=== PATIENT | female | born 1955 | race American Indian/Alaskan Native ===

== ENCOUNTER 2016-10-24 06:31 | Inpatient (IN) | payer MEDICARE ==
[2016-10-24 07:11] LABS: Basophils % (Auto) 0.4 % (0.0-1.8); Eosinophils % (Auto) 0.6 % (0.0-4.3); Hematocrit 37.8 % (30.3-42.9); Mean Corpuscular HGB Conc 32 % (30-34); Mean Corpuscular Hemoglobin 30 pg (28-32); Mean Corpuscular Volume 94 fl (79-97); Platelet Count 247 K/mm3 (140-440); Red Blood Count 4.02 M/mm3 (3.65-5.03); Red Cell Distribution Width 16.5 % (13.2-15.2); White Blood Count 13.8 K/mm3 (4.5-11.0)
[2016-10-24] MEDS ORDERED: ROCEPHIN/NS 1 GM/50 ML 50 ML IV ONE (07:13)
--- NOTE | 2016-10-24 07:22 | Emergency Department Report ---
HPI - General Chief Complaint: Dyspnea/Respdistress Time Seen by Provider: 10/24/16 06:42 - HPI HPI: Chief complaint: Shortness of breath and productive cough HPI: Patient is 60-year-old female with a history of hypertension, CVA with left hemiparesis, lupus, PEG tube, COPD who is still smoking presents today with a one-week history of shortness of breath and productive cough with green sputum. Patient also is noted to have a fever this morning. No nausea vomiting or diarrhea. Patient was brought by EMS who noted that her pulse ox was 77% on room air. Patient placed on 100% nonrebreather and her pulse ox went up to 98%. On arrival to the emergency Department patient was placed on BiPAP with significant improvement. Patient states she is unable to sleep last night. Patient has home O2 that she uses as needed. Patient has a PEG tube since her stroke. Mode of arrival: [EMS] Source: [Patient] and nursing notes Began: One week ago Duration: One week Context: See above Quality: Pleuritic chest pain on coughing Severity: 8 out of 10 Improved with: Nothing Worsened with: Nothing Associated signs and symptoms: See above ED Past Medical Hx - Past Medical History Hx Hypertension: Yes Hx CVA: Yes (Left sided weakness) Hx Seizures: Yes Additional medical history: lupus, MS, Pneumonia x17 - Surgical History Additional Surgical History: Peg tube - Social History Smoking Status: Current Every Day Smoker Substance Use Type: None - Medications Home Medications: Home Medications Medication Instructions Recorded Confirmed Last Taken Type HYDROcodone/APAP 7.5-325 [[place]] 15 ml PO Q4HR PRN #300 ml 06/01/16 Unknown Rx ED Review of Systems ROS: Stated complaint: LYNSEY Other details as noted in HPI ROS Constitutional: fever ENT: No uri symptoms Cardiovascular: No chest pain Respiratory: See HPI GI: No nausea vomiting or diarrhea : No dysuria frequency or urgency, Skin: No rash Neuro: Left hemiparesis, patient uses a walker to get around Psych: No depression Robson/lymph: No edema Physical Exam - Physical Exam Vital Signs: Vital Signs 10/24/16 10/24/16 06:33 06:47 Temperature 100.9 F H Pulse Rate 130 H 129 H Respiratory 24 22 Rate Blood Pressure 120/86 120/86 Blood Pressure 120/86 [Right] O2 Sat by Pulse 100 97 Oximetry Physical Exam: GENERAL: The patient is well-developed well-nourished . HEENT: Normocephalic. Atraumatic. Extraocular motions are intact. Patient has moist mucous membranes. NECK: Supple. No meningitic signs are noted. There is no adenopathy noted. CHEST/LUNGS: Wheezing throughout. There is mild respiratory distress noted. HEART/CARDIOVASCULAR: Regular. There is no tachycardia. There is no gallop rub or murmur. ABDOMEN: Abdomen is soft, nontender. Patient has normal bowel sounds. There is no abdominal distention. SKIN: There is no rash. There is no edema. There is no diaphoresis. NEURO: The patient is awake, alert, and oriented. The patient is cooperative. Left hemiparesis The patient has normal speech. MUSCULOSKELETAL: There is no tenderness or deformity. There is no limitation range of motion. There is no evidence of acute injury. ED Course Vital Signs 10/24/16 10/24/16 06:33 06:47 Temperature 100.9 F H Pulse Rate 130 H 129 H Respiratory 24 22 Rate Blood Pressure 120/86 120/86 Blood Pressure 120/86 [Right] O2 Sat by Pulse 100 97 Oximetry - Reevaluation(s) Reevaluation #1: 10/24/16 07:22 Patient placed on BiPAP and given a nebulizer treatment. Patient has a left pneumonia and was given 1 g of IV Rocephin. Patient will be admitted to the hospitalist. ED Medical Decision Making - Lab Data Result diagrams: 10/24/16 Unknown 10/24/16 06:40 Laboratory Tests 10/24/16 10/24/16 06:40 07:46 POC ABG pH 7.221 L POC ABG pCO2 37.4 POC ABG pO2 64 L POC ABG HCO3 15.4 POC ABG Total CO2 16 POC ABG O2 Sat 87 POC ABG Base Excess -12 FiO2 30 Troponin T < 0.010 - EKG Data -: EKG Interpreted by Me EKG shows normal: sinus rhythm Rate: tachycardia (129) - EKG Data When compared to previous EKG there are: no significant change Interpretation: LVH, other (significant artifact) - Radiology Data interpreted by me: Chest x-ray shows a left hilar infiltrate Critical care attestation.: If time is entered above; I have spent that time in minutes in the direct care of this critically ill patient, excluding procedure time. ED Disposition Clinical Impression: COPD exacerbation, Hypoxia Pneumonia involving left lung Qualifiers: Pneumonia type: due to unspecified organism Lung location: unspecified part of lung Qualified Code(s): J18.9 - Pneumonia, unspecified organism Respiratory failure Qualifiers: Chronicity: acute Respiratory failure complication: hypoxia Qualified Code(s): J96.01 - Acute respiratory failure with hypoxia Disposition: OP ADMITTED IP TO THIS HOSP Is pt being admited?: Yes Does the pt Need Aspirin: Yes Condition: Fair Instructions: Bacterial Pneumonia (ED), Chronic Obstructive Pulmonary Disease ( ED) Referrals: PRIMARY CARE, [Primary Care Provider] - 3-5 Days Time of Disposition: 07:24 (admit to the hospitalist)
[2016-10-24 07:31] LABS: BUN/Creatinine Ratio 31.66; Blood Urea Nitrogen 38 mg/dL (7-17); Calcium 8.9 mg/dL (8.4-10.2); Carbon Dioxide 15 mmol/L (22-30); Chloride 109.4 mmol/L (98-107); Glucose 96 mg/dL (65-100); Potassium 4.6 mmol/L (3.6-5.0); Sodium 142 mmol/L (137-145)
[2016-10-24] MEDS: ASPIRIN PO ONE ×2 (07:50→11:14)
[2016-10-24 07:52] LABS: Anion Gap 22 mmol/L
[2016-10-24 07:56] LABS: ISTAT Base Excess -12; ISTAT HCO3 15.4; ISTAT PCO2 37.4 (35-45); ISTAT PH 7.221 (7.35-7.45); ISTAT PO2 64 (80-105); ISTAT SO2 87; ISTAT TCO2 16
--- NOTE | 2016-10-24 09:23 | XRay Report ---
Single view chest: Compared to 12/18/10. History: Shortness of breath. Findings: Normal cardiomediastinal silhouette. Trachea is midline. Airspace opacities left hilum and left lower lobe. Normal CP angles. Scarring right upper lobe. Impression: Airspace opacities left hilum probably suggestive of pneumonitis.
[2016-10-24] MEDS ORDERED: NON-FORMULARY (Quetiapine Fumarate [Seroquel] 50 MG) FEEDTUBE SCH (10:00)
[2016-10-24] MEDS ORDERED: FIBER FEEDTUBE SCH (10:00)
[2016-10-24] MEDS ORDERED: LACTOSE REDUCED FOOD FEEDTUBE SCH (10:00)
[2016-10-24] MEDS ORDERED: PREDNISONE 10 MG FEEDTUBE SCH (10:00)
--- NOTE | 2016-10-24 10:03 | History and Physical Report ---
History of Present Illness Date of examination: 10/24/16 Date of admission: 10/24/16 Chief complaint: Cough with shortness of breath - 1 week History of present illness: Patient is 60-year-old lady who has a history or COPD, lupus, multiple sclerosis , stroke started having the cough and shortness of breath for the past 1 week. Progressively got worse for which she came into the emergency department last night. Has no subjective fever. At emergency department patient was found to be hypoxic with a PO2 in the 60s. Had leukocytosis. Chest x-ray shows evidence of left lower lobe infiltrate. Was placed on oxygen by nasal cannula. She was still hypoxic. Was therefore commenced on BiPAP. ABG and blood chemistry showed evidence of metabolic acidosis. Admission was therefore requested. Past History Past Medical History: COPD, stroke, other (multiple sclerosis, bipolar disorder , dysphagia status post PEG tube placement, systemic lupus erythematosus) Past Surgical History: Other (PEG tube placement for dysphagia) Social history: smoking (half pack of cigarette a day for the past 15 years), alcohol abuse Family history: other (lives alone however family members and her Daughter regularly check on her) Medications and Allergies Allergies Allergy/AdvReac Type Severity Reaction Status Date / Time No Known Allergies Allergy Unverified 06/01/16 12:48 Home Medications Medication Instructions Recorded Confirmed Last Taken Type Aspirin 81 mg FEEDTUBE DAILY 10/24/16 10/24/16 Unknown History Lactose-Reduced Food/Fiber [Jevity 237 ml FEEDTUBE DAILY 10/24/16 10/24/16 Unknown History 1.2 [place] Liquid] Prednisone [predniSONE (Addie) ER 10 mg FEEDTUBE QDAY 10/24/16 10/24/16 Unknown History TAB] Quetiapine Fumarate [SEROquel] 50 mg FEEDTUBE QDAY 10/24/16 10/24/16 Unknown History Active Meds: Active Medications Aspirin (Baby Aspirin) 81 mg FEEDTUBE DAILY JOE Enoxaparin Sodium (Lovenox) 40 mg SUB-Q QDAY JOE Azithromycin 500 mg/ Sodium (Chloride) 250 mls @ 250 mls/hr IV Q24HR JOE Ceftriaxone Sodium (Rocephin/Ns 1 Gm/50 Ml) 50 mls @ 100 mls/hr IV Q24HR JOE PRN Reason: Protocol Miscellaneous Medication (Lactose-Reduced Food/Fiber [Jevity 1.2 [place] Liquid]) 237 ml FEEDTUBE DAILY JOE Miscellaneous Medication (Prednisone [Prednisone (Addie) Er Tab]) 10 mg FEEDTUBE QDAY JOE Miscellaneous Medication (Quetiapine Fumarate [Seroquel]) 50 mg FEEDTUBE QDAY JOE Review of system Constitutional: Well Nourished and Well developed with moderate respiratory distress On BiPAP Head: NC/ AT Eyes: Denies any visual impairments. No discharge from the eyes Nose: Denies any rhinorrhea or epistaxis Throats: Denies any post nasal drainage. Ears: Denies any hearing deficits Cardiovascular system: Denies any chest pain, shortness of breath, orthopnea, paroxysmal nocturnal dyspnea, or palpitation. Respiratory system: Denies any cough, difficulty breathing, wheezing, pleuritic chest pain, Gastrointestinal system: Has a PEG tube in place. Denies any abdominal pain, nausea vomiting, hematemesis or melena. Neurological system: Denies any headache, slurred speech, facial droop, lateralizing weakness Genitalia system: Denies any dysuria, urinary frequency or urgency, urethral discharge Skin: No rashes, hyperpigmented spots. Hematological: Denies any cervical tenderness hemorrhages or petechia. Immunological: Denies any multiple septic spots, Lymphatic: Denies any generalized lymphadenopathy. Endocrine: Denies any polyuria, polydipsia, polyphagia. No heat or cold intolerance. Exam - Constitutional Vitals: Temp Pulse Resp BP Pulse Ox 100.9 F H 99 H 19 96/64 95 10/24/16 06:33 10/24/16 09:00 10/24/16 09:00 10/24/16 09:00 10/24/16 09:00 General appearance: Present: no acute distress, well-nourished - EENT Eyes: Present: PERRL ENT: hearing intact, clear oral mucosa - Neck Neck: Present: supple, normal ROM - Respiratory Respiratory effort: normal Respiratory: bilateral: CTA - Cardiovascular Heart Sounds: Present: S1 & S2. Absent: rub, click - Extremities Extremities: pulses symmetrical, No edema Peripheral Pulses: within normal limits - Abdominal General gastrointestinal: Present: soft, non-tender, non-distended, normal bowel sounds, other (PEG tube in place) Female genitourinary: Present: normal - Integumentary Integumentary: Present: clear, warm, dry - Musculoskeletal Musculoskeletal: gait normal, strength equal bilaterally - Psychiatric Psychiatric: appropriate mood/affect, intact judgment & insight - Neurologic Neurologic: CNII-XII intact, moves all extremities Results - Labs CBC & Chem 7: 10/24/16 Unknown 10/24/16 06:40 Labs: Abnormal lab results 10/24/16 10/24/16 10/24/16 Range/Units 06:40 07:46 Unknown WBC 13.8 H (4.5-11.0) K/mm3 RDW 16.5 H (13.2-15.2) % Lymph % (Auto) 13.3 L (13.4-35.0) % Seg Neutrophils % 82.2 H (40.0-70.0) % Seg Neutrophils # 11.4 H (1.8-7.7) K/mm3 POC ABG pH 7.221 L (7.35-7.45) POC ABG pO2 64 L (80-105) Chloride 109.4 H (98-107) mmol/L Carbon Dioxide 15 L (22-30) mmol/L BUN 38 H (7-17) mg/dL Assessment and Plan - Patient Problems (1) COPD exacerbation Diagnosis Date: 10/24/16 Current Visit: Yes Status: Acute Plan to address problem: Commence patient on albuterol and Atrovent, Pulmicort, patient already on IV Rocephin. Obtain chest x-ray and ABG in the morning, pulse ox (2) Pneumonia involving left lung Diagnosis Date: 10/24/16 Current Visit: Yes Status: Acute Qualifiers: Pneumonia type: due to unspecified organism Lung location: unspecified part of lung Qualified Code(s): J18.9 - Pneumonia, unspecified organism Plan to address problem: Blood cultures and obtain. Lactic acid level ordered. IV Rocephin and azithromycin. Pulse ox on a daily basis. (3) Acute respiratory failure with hypoxia Diagnosis Date: 10/24/16 Current Visit: Yes Status: Acute Plan to address problem: On BiPAP, oxygen supplement via BiPAP, pulmonary consult, IV Rocephin, azithromycin, (4) Dysphagia as late effect of stroke Diagnosis Date: 10/24/16 Current Visit: Yes Status: Acute Plan to address problem: Patient had PEG tube. Commence feeding with Jevity 1.5 (5) Multiple sclerosis Diagnosis Date: 10/24/16 Current Visit: Yes Status: Acute Plan to address problem: Patient on prednisone 10 mg daily. We'll continue with the same. (6) Bipolar disorder Diagnosis Date: 10/24/16 Current Visit: Yes Status: Acute Plan to address problem: Stable on Seroquel. Continue with the same.
[2016-10-24] MEDS: ROCEPHIN/NS 1 GM/50 ML 50 ML IV SCH (10:37)
[2016-10-24] MEDS: BABY ASPIRIN FEEDTUBE SCH (10:39)
[2016-10-24] MEDS ORDERED: DELTASONE PO ONE (10:42)
[2016-10-24] MEDS: NORCO 5/325 PO PRN ×2 (11:00→16:36)
[2016-10-24] MEDS ORDERED: NACL 0.9% 1000 ML 1,000 ML ONE (11:06)
[2016-10-24] MEDS: ZITHROMAX 500 MG in NACL 0.9% 250ML 250 ML IV SCH (11:13)
[2016-10-24] MEDS: LOVENOX SUB-Q SCH (11:15)
[2016-10-24] MEDS ORDERED: NACL 0.9% 1000 ML 500 ML IV ONE (11:30)
[2016-10-24] MEDS ORDERED: LEVOPHED DRIP 4 MG/NS 250 ML 250 ML IV SCH (11:30)
--- NOTE | 2016-10-24 12:26 | Consultation ---
History of Present Illness Consult date: 10/24/16 Requesting physician: JATINDER FRANCOIS Reason for consult: other (Sepsis Syndrome; Acute Respiratory FAilure) History of present illness: PULMONARY/CCM CONSULT NOTE (Full dictation # [id number]) Please see dictated notes for full details Past History Past Medical History: COPD, stroke, other (multiple sclerosis, bipolar disorder , dysphagia status post PEG tube placement, systemic lupus erythematosus) Past Surgical History: Other (PEG tube placement for dysphagia) Social history: smoking (half pack of cigarette a day for the past 15 years), alcohol abuse Family history: other (lives alone however family members and her Daughter regularly check on her) Medications and Allergies Allergies Allergy/AdvReac Type Severity Reaction Status Date / Time piperacillin sodium Allergy Anaphylaxis Verified 10/24/16 12:44 [From Zosyn] tazobactam sodium Allergy Anaphylaxis Verified 10/24/16 12:44 [From Zosyn] Home Medications Medication Instructions Recorded Confirmed Last Taken Type Aspirin 81 mg FEEDTUBE DAILY 10/24/16 10/24/16 Unknown History Lactose-Reduced Food/Fiber [Jevity 237 ml FEEDTUBE DAILY 10/24/16 10/24/16 Unknown History 1.2 [place] Liquid] Quetiapine Fumarate [SEROquel] 50 mg FEEDTUBE BID 10/24/16 10/24/16 Unknown History predniSONE [Deltasone] 10 mg FEEDTUBE QDAY 10/24/16 10/24/16 Unknown History Active Meds: Active Medications Acetaminophen/Hydrocodone Bitart ([place] 5/325) 1 each PO Q6H PRN PRN Reason: Pain, Moderate (4-6) Last Admin: 10/24/16 11:00 Dose: 1 each Aspirin (Baby Aspirin) 81 mg FEEDTUBE DAILY [facility] Last Admin: 10/24/16 10:39 Dose: Not Given Enoxaparin Sodium (Lovenox) 40 mg SUB-Q QDAY JOE Last Admin: 10/24/16 11:15 Dose: 40 mg Azithromycin 500 mg/ Sodium (Chloride) 250 mls @ 250 mls/hr IV Q24HR JOE Last Admin: 10/24/16 11:13 Dose: 250 mls/hr Ceftriaxone Sodium (Rocephin/Ns 1 Gm/50 Ml) 50 mls @ 100 mls/hr IV Q24HR JOE PRN Reason: Protocol Last Admin: 10/24/16 10:37 Dose: Not Given Norepinephrine (Levophed Drip 4 Mg/Ns 250 Ml) 250 mls @ 7.5 mls/hr IV TITR JOE ; 2 MCG/MIN PRN Reason: Protocol Prednisone (Deltasone) 10 mg PO DAILY JOE Quetiapine Fumarate (Seroquel) 50 mg PO BID JOE Physical Examination Vital signs: Vital Signs Temp Pulse Resp BP Pulse Ox 100.9 F H 130 H 24 120/86 100 10/24/16 06:33 10/24/16 06:33 10/24/16 06:33 10/24/16 06:33 10/24/16 06:33 Results - Laboratory Findings CBC and BMP: 10/24/16 Unknown 10/24/16 06:40 ABG POC ABG pH 7.221 (7.35-7.45) L 10/24/16 07:46 POC ABG pCO2 37.4 (35-45) 10/24/16 07:46 POC ABG pO2 64 (80-105) L 10/24/16 07:46 POC ABG HCO3 15.4 10/24/16 07:46 POC ABG Total CO2 16 10/24/16 07:46 POC ABG O2 Sat 87 10/24/16 07:46 Abnormal lab findings: Abnormal Labs 10/24/16 Unknown WBC 13.8 H RDW 16.5 H Lymph % (Auto) 13.3 L Seg Neutrophils % 82.2 H Seg Neutrophils # 11.4 H
--- NOTE | 2016-10-24 13:06 | XRay Report ---
Single view chest: Compared to 10/24/16. History: Shortness of breath. Findings: Normal cardiomediastinal silhouette. Trachea is midline. Ill-defined infiltrates left lower lobe without interval change. Scarring right lung without interval change. Tip of right central line in mid superior vena cava. No pneumothorax. Impression: Tip of right central line in superior vena cava. No significant interval change in cardiopulmonary findings.
[2016-10-24 13:43] LABS: ISTAT Base Excess -12; ISTAT HCO3 15.6; ISTAT PCO2 39.4 (35-45); ISTAT PH 7.204 (7.35-7.45); ISTAT PO2 72 (80-105); ISTAT SO2 90; ISTAT TCO2 17
[2016-10-24] MEDS ORDERED: FLUARIX QUAD 2016-2017(36 MOS+) IM ONE (15:14)
[2016-10-24] MEDS ORDERED: SODIUM BICARBONATE 150 MEQ in D5W 1,000 ML IV SCH (16:00)
[2016-10-24] MEDS: HABITROL TD SCH (16:35)
[2016-10-24] MEDS ORDERED: HYDROMET PO PRN (16:52)
[2016-10-24 17:18] LABS: C-Reactive Protein 6.6 mg/dL (0.00-1.30); Magnesium 1.7 mg/dL (1.7-2.3); Phosphorous 2.8 mg/dL (2.5-4.5)
[2016-10-24] MEDS: DUONEB 0.5 MG-3 MG/3 ML SOLN IH SCH (20:34)
[2016-10-24] MEDS: PEPCID PO SCH (22:33)
--- NOTE | 2016-10-24 22:42 | Consultation ---
CONSULTING PHYSICIAN: Marlin Oneill MD REASON FOR CONSULTATION: Acute hypoxemic respiratory failure, sepsis syndrome. CHIEF COMPLAINT AND HISTORY OF PRESENT ILLNESS: The patient is a 60-year-old -[place] female with past medical history significant amongst other things for a diagnosis of chronic obstructive lung disease, but also systemic lupus erythematosus and multiple sclerosis who according to her daughter really has not been herself for the past 7-10 days. She has had increasing dyspnea on exertion. She had a cough, initially it was clear and then became yellowish in nature. She complained of some pleuritic chest pain. She denied nausea, vomiting, or overt aspiration. She did not want to come to the Emergency Room because she suspected she might be admitted. She has a 20+ pack year tobacco smoking history, continues to smoke. Yesterday, symptoms decompensated rapidly. She remained afebrile, but was significantly short of breath. She was brought into the ER. She was found to be hypoxemic, O2 sats in the 60s. She had leukocytosis. She was diagnosed with pneumonia and required bilevel positive air pressure ventilation therapy. She also developed hypotension, earlier a few hours back and is requiring vasopressor support. When I stopped by to see her, she actually said she perhaps is feeling a little bit better, but still feels very awful. She complained of generalized pain. Denied any trauma. Denied nausea, vomiting, or overt aspiration. That really is as much of the history of presentation as I have. PAST MEDICAL HISTORY: Chronic obstructive lung disease, cerebrovascular accident in the past, multiple sclerosis, bipolar disorder, dysphagia, systemic lupus erythematosus. PAST SURGICAL HISTORY: She has had a PEG tube placed for dysphagia. MEDICATIONS: She was on at the time I stopped by to see her, according to the medication administration record included the following: [place] 5/325 mg p.o. q.6h. p.r.n. moderate pain, baby aspirin once daily, azithromycin 500 mg IV daily, Rocephin 1 gram IV daily, Lovenox 40 mg subcutaneous daily, Levophed drip was going at 4 mcg per minute, prednisone 10 mg p.o. daily, and Seroquel 50 mg p.o. b.i.d. scheduled. ALLERGIES: Zosyn. Nature of this allergy is unknown. DIET: Well-built lady, denies acute weight loss or gain in the preceding few weeks to months. FAMILY AND SOCIAL HISTORY: Lives in the community, 20+ pack year tobacco smoking history. Denies alcohol or illicit drug use or abuse. REVIEW OF SYSTEMS: No loss of consciousness. No new onset seizures. No new onset focal weakness. No gross hematochezia or melena. No gross hematuria or dysuria. No hematemesis. No hemoptysis. No palpitations. She has had a generalized weakness. Complete review of systems obtained. Pertinent positives and/or negatives as in body of history above, otherwise noncontributory. PHYSICAL EXAMINATION: VITAL SIGNS: At presentation, she was febrile, temperature 100.9 with a pulse of 130, respiratory rate of 24, blood pressure 120/86, oxygen sats were 100%, inspired oxygen concentration at that was not recorded, but I believe that was on BiPAP. HEAD, EYES, EARS, NOSE, AND THROAT: Pupils are equal, round, about 3 mm, reactive to light. Extraocular muscle movements appeared intact. Grossly, there were no palpable lymph nodes in the supraclavicular or submandibular lymph node chains. LUNGS: Auscultation of both lung [place] reveal bibasilar rales, left greater than right. No wheezing. HEART: Heart sounds 1 and 2 are heard. There were regular rate and rhythm at the time of my evaluation. ABDOMEN: Soft, flat. Bowel sounds are positive. Nontender. EXTREMITIES: Without overt digital clubbing. She does have swelling to the digits of her upper extremities. No significant pedal edema, otherwise. NEUROLOGIC: The exam was grossly nonfocal. LABORATORY DATA: From my review are as follows: White cell count 13,800, hemoglobin 12.0, hematocrit 37.8, and platelets 247. Arterial blood gas showed a pH of 7.22, pCO2 of 37, pO2 of 64 on 30% at presentation. Repeat gases now shows a pH of 7.20, pCO2 of 39, pO2 of 72, same 30% that was done on BiPAP, I believe was 18/5. Backup rate unknown. Serum sodium 142, potassium 4.6, chloride 109, bicarbonate 15, BUN 38, creatinine 1.2, glucose 96. Lactic acid level 0.9. Blood cultures are pending. Radiographic studies have been reviewed. I have reviewed the radiologist's interpretation as well as the film. Chest x-ray at admission did show chronically increased interstitial markings, chronic looking but also the suggestion of a left lower lobe infiltrate and possible perihilar enlargement in that side or infiltrate. No gross pneumothorax. She now has a right IJ central line tip is in the distal IVC. ASSESSMENT AND PLAN: We have an elderly lady here in with sepsis, presumably secondary to pneumonia. From a respiratory standpoint, she is doing relatively decent job, however, not able to compensate for the metabolic acidosis well at this point. She will continue to benefit from bilevel positive airway pressure ventilation therapy, especially at night, I will schedule q. night/q. when she is asleep and use p.r.n. during the day. We will work on correcting the metabolic acidosis primarily. I will schedule some bronchodilators in the short time and then p.r.n. thereafter. Aspiration precautions will be maintained, and we will continue current anti-infective therapy as ordered. I should mention that I will also been increasing systemic steroids for a different reason, I do feel that there is an element of chronic lung disease in this lady and perhaps, a CT scan of the chest might be of benefit, especially if she does not show improvement down the road. From a cardiovascular standpoint, she remains on vasopressors. It is unclear how much volume she has received total, but she did receive IV resuscitation downstairs. The BUN of a creatinine ratio does suggest intravascular volume depletion. She will be rehydrated. Vasopressors will be weaned to keep mean arterial pressures greater than or equal to about 60-65 mmHg. From an infectious disease standpoint, we will continue community acquired pneumonia therapy; however, I will be adding stress dose steroids for this lady who was on chronic prednisone at home. I will order a CRP level and we will trend lactic acid and CRP levels as necessary. We will get a lactic acid level in the morning. Anti-infectives will ultimately be deescalated based on results of clinical and microbiologic data. From a [employer] standpoint, the exam is grossly nonfocal. We will follow her clinically. From an endocrine/autoimmune standpoint, I think the swelling of the digits, probably and, however, all constitutional symptoms may also denote a flare up of her autoimmune disorders and as mentioned, I will go ahead and put her on stress dosed steroids in the short term. From a general and hospital healthcare maintenance standpoint, she is on GI and DVT prophylaxis. Flu and pneumonia vaccination will be per protocol. I should mention from a [employer] standpoint, the exam is grossly nonfocal. No acute indication for neuro imaging. We will follow her clinically. Thank you very much for the consult Dr. Oneill. We will follow along and make further recommendations as picture progresses/becomes clearer. She is critically ill, requiring noninvasive ventilatory support, as well as vasopressors life sustaining therapies, at high risk for further deterioration including . I have spent at this time about 35-40 minutes of critical care time without overlap and excluding any procedural time that may be necessary. JOB# [id number] LUPE/ALESSANDRO
[2016-10-25 07:57] LABS: Alanine Aminotransferase 10 units/L (7-56); Albumin 3.1 g/dL (3.9-5); Albumin/Globulin Ratio 0.7 %; Alkaline Phosphatase 89 units/L (35-129); BUN/Creatinine Ratio 33.33; Bilirubin,Total 0.2 mg/dL (0.1-1.2); Blood Urea Nitrogen 30 mg/dL (7-17); Calcium 8.4 mg/dL (8.4-10.2); Carbon Dioxide 23 mmol/L (22-30); Chloride 105.8 mmol/L (98-107); Glucose 126 mg/dL (65-100); Sodium 141 mmol/L (137-145); Total Protein 7.8 g/dL (6.3-8.2)
[2016-10-25 07:58] LABS: Anion Gap 16 mmol/L
[2016-10-25 08:09] LABS: Hematocrit 32.7 % (30.3-42.9); Hemoglobin 10.5 gm/dl (10.1-14.3); Mean Corpuscular HGB Conc 32 % (30-34); Mean Corpuscular Hemoglobin 29 pg (28-32); Mean Corpuscular Volume 91 fl (79-97); Platelet Count 203 K/mm3 (140-440); Red Blood Count 3.58 M/mm3 (3.65-5.03); Red Cell Distribution Width 16.1 % (13.2-15.2)
[2016-10-25 08:21] LABS: White Blood Count 21.8 K/mm3 (4.5-11.0)
[2016-10-25] MEDS ORDERED: SIMPLE SYRUP FEEDTUBE PRN ×2 (09:11)
[2016-10-25] MEDS ORDERED: PANCREAZE DR 10,500 UNIT FEEDTUBE PRN (09:11)
[2016-10-25] MEDS ORDERED: SODIUM BICARBONATE FEEDTUBE PRN (09:11)
[2016-10-25 09:20] LABS: Basophils % (Manual) 0 % (0.0-1.8); Blastocytes % (Manual) 0 %; Diff Status Complete; Eosinophils % (Manual) 0 % (0.0-4.3); RBC Morphology Normal
[2016-10-25] MEDS: PEPCID PO SCH ×2 (09:23→22:52)
[2016-10-25] MEDS: ROCEPHIN/NS 1 GM/50 ML 50 ML IV SCH (09:23)
[2016-10-25] MEDS: LOVENOX SUB-Q SCH (09:23)
[2016-10-25] MEDS: ZITHROMAX 500 MG in NACL 0.9% 250ML 250 ML IV SCH (09:24)
[2016-10-25] MEDS: BABY ASPIRIN FEEDTUBE SCH (09:24)
[2016-10-25] MEDS: DUONEB 0.5 MG-3 MG/3 ML SOLN IH SCH ×3 (09:36→20:15)
[2016-10-25] MEDS: HABITROL TD SCH (09:37)
[2016-10-25] MEDS ORDERED: PROVENTIL IH PRN (09:48)
[2016-10-25] MEDS ORDERED: DELTASONE PO SCH (10:00)
--- NOTE | 2016-10-25 10:15 | Progress Note ---
Assessment and Plan - Patient Problems (1) Acute respiratory failure with hypoxia Diagnosis Date: 10/24/16 Current Visit: Yes Status: Acute Plan to address problem: Patient admitted with COPD exacerbation which cause acute respiratory failure. Patient was admitted to the intensive care for close monitoring. Patient is much improved today. Saturations are much improved. Will transfer to medical bed (2) COPD exacerbation Diagnosis Date: 10/24/16 Current Visit: Yes Status: Acute Plan to address problem: Patient admitted with acute respiratory failure secondary to COPD. We'll continue nebulized treatment steroids and will transfer to medical bed today (3) Pneumonia involving left lung Diagnosis Date: 10/24/16 Current Visit: Yes Status: Acute Qualifiers: Pneumonia type: due to unspecified organism Lung location: unspecified part of lung Qualified Code(s): J18.9 - Pneumonia, unspecified organism Plan to address problem: Continue IV antibiotics. Follow blood cultures sputum cultures. White blood cell count is 21.8 today.Patient is afebrile History Interval history: Patient sitting up in bed with sister at bedside. Patient states that she felt better today Hospitalist Physical - Constitutional Vitals: Temp Pulse Resp BP Pulse Ox 97.5 F L 68 12 127/72 95 10/25/16 04:00 10/25/16 09:36 10/25/16 09:36 10/25/16 06:00 10/25/16 09:45 General appearance: Present: no acute distress, well-nourished - EENT Eyes: Present: PERRL, EOM intact ENT: hearing intact, clear oral mucosa - Neck Neck: Present: supple, normal ROM - Respiratory Respiratory effort: normal Respiratory: bilateral: rhonchi - Cardiovascular Rhythm: regular Heart Sounds: Present: S1 & S2 - Abdominal General gastrointestinal: soft, non-tender, non-distended, normal bowel sounds - Psychiatric Psychiatric: appropriate mood/affect, intact judgment & insight - Neurologic Neurologic: CNII-XII intact, moves all extremities Results - Labs CBC & Chem 7: 10/25/16 07:20 10/25/16 06:47 Labs: Laboratory Last Values WBC 21.8 K/mm3 (4.5-11.0) H 10/25/16 07:20 RBC 3.58 M/mm3 (3.65-5.03) L 10/25/16 07:20 Hgb 10.5 gm/dl (10.1-14.3) 10/25/16 07:20 Hct 32.7 % (30.3-42.9) 10/25/16 07:20 MCV 91 fl (79-97) D 10/25/16 07:20 MCH 29 pg (28-32) 10/25/16 07:20 MCHC 32 % (30-34) 10/25/16 07:20 RDW 16.1 % (13.2-15.2) H 10/25/16 07:20 Plt Count 203 K/mm3 (140-440) 10/25/16 07:20 Lymph % (Auto) 13.3 % (13.4-35.0) L 10/24/16 Unknown Mcdonough % (Auto) 3.5 % (0.0-7.3) 10/24/16 Unknown Eos % (Auto) 0.6 % (0.0-4.3) 10/24/16 Unknown Baso % (Auto) 0.4 % (0.0-1.8) 10/24/16 Unknown Lymph # 1.8 K/mm3 (1.2-5.4) 10/24/16 Unknown Mcdonough # 0.5 K/mm3 (0.0-0.8) 10/24/16 Unknown Eos # 0.1 K/mm3 (0.0-0.4) 10/24/16 Unknown Baso # 0.1 K/mm3 (0.0-0.1) 10/24/16 Unknown Add Manual Diff Complete 10/25/16 07:20 Total Counted 100 10/25/16 07:20 Seg Neutrophils % Bean Viner 10/25/16 07:20 Seg Neuts % (Manual) 77.0 % (40.0-70.0) H 10/25/16 07:20 Band Neutrophils % 18.0 % 10/25/16 07:20 Lymphocytes % (Manual) 3.0 % (13.4-35.0) L 10/25/16 07:20 Reactive Lymphs % (Man) 0 % 10/25/16 07:20 Monocytes % (Manual) 2.0 % (0.0-7.3) 10/25/16 07:20 Eosinophils % (Manual) 0 % (0.0-4.3) 10/25/16 07:20 Basophils % (Manual) 0 % (0.0-1.8) 10/25/16 07:20 Metamyelocytes % 0 % 10/25/16 07:20 Myelocytes % 0 % 10/25/16 07:20 Promyelocytes % 0 % 10/25/16 07:20 Blast Cells % 0 % 10/25/16 07:20 Nucleated RBC % Not Reportable 10/25/16 07:20 Seg Neutrophils # 11.4 K/mm3 (1.8-7.7) H 10/24/16 Unknown Seg Neutrophils # Man 16.8 K/mm3 (1.8-7.7) H 10/25/16 07:20 Band Neutrophils # 3.9 K/mm3 10/25/16 07:20 Lymphocytes # (Manual) 0.7 K/mm3 (1.2-5.4) L 10/25/16 07:20 Abs React Lymphs (Man) 0.0 K/mm3 10/25/16 07:20 Monocytes # (Manual) 0.4 K/mm3 (0.0-0.8) 10/25/16 07:20 Eosinophils # (Manual) 0.0 K/mm3 (0.0-0.4) 10/25/16 07:20 Basophils # (Manual) 0.0 K/mm3 (0.0-0.1) 10/25/16 07:20 Metamyelocytes # 0.0 K/mm3 10/25/16 07:20 Myelocytes # 0.0 K/mm3 10/25/16 07:20 Promyelocytes # 0.0 K/mm3 10/25/16 07:20 Blast Cells # 0.0 K/mm3 10/25/16 07:20 WBC Morphology Not Reportable 10/25/16 07:20 Hypersegmented Neuts Not Reportable 10/25/16 07:20 Hyposegmented Neuts Not Reportable 10/25/16 07:20 Hypogranular Neuts Not Reportable 10/25/16 07:20 Smudge Cells Not Reportable 10/25/16 07:20 Toxic Granulation Not Reportable 10/25/16 07:20 Toxic Vacuolation Not Reportable 10/25/16 07:20 Dohle Bodies Not Reportable 10/25/16 07:20 Pelger-Huet Anomaly Not Reportable 10/25/16 07:20 Martha Rods Not Reportable 10/25/16 07:20 Platelet Estimate Appears normal 10/25/16 07:20 Clumped Platelets Not Reportable 10/25/16 07:20 Plt Clumps, EDTA Not Reportable 10/25/16 07:20 Large Platelets Not Reportable 10/25/16 07:20 Giant Platelets Not Reportable 10/25/16 07:20 Platelet Satelliting Not Reportable 10/25/16 07:20 Plt Morphology Comment Not Reportable 10/25/16 07:20 RBC Morphology Normal 10/25/16 07:20 Dimorphic RBCs Not Reportable 10/25/16 07:20 Polychromasia Not Reportable 10/25/16 07:20 Hypochromasia Not Reportable 10/25/16 07:20 Poikilocytosis Not Reportable 10/25/16 07:20 Anisocytosis Not Reportable 10/25/16 07:20 Microcytosis Not Reportable 10/25/16 07:20 Macrocytosis Not Reportable 10/25/16 07:20 Spherocytes Not Reportable 10/25/16 07:20 Pappenheimer Bodies Not Reportable 10/25/16 07:20 Sickle Cells Not Reportable 10/25/16 07:20 Target Cells Not Reportable 10/25/16 07:20 Tear Drop Cells Not Reportable 10/25/16 07:20 Ovalocytes Not Reportable 10/25/16 07:20 Helmet Cells Not Reportable 10/25/16 07:20 [place] Bodies Not Reportable 10/25/16 07:20 [place] Rings Not Reportable 10/25/16 07:20 Walter Cells Not Reportable 10/25/16 07:20 Bite Cells Not Reportable 10/25/16 07:20 Crenated Cell Not Reportable 10/25/16 07:20 Elliptocytes Not Reportable 10/25/16 07:20 Acanthocytes (Spur) Not Reportable 10/25/16 07:20 Rouleaux Not Reportable 10/25/16 07:20 Hemoglobin C Crystals Not Reportable 10/25/16 07:20 Schistocytes Not Reportable 10/25/16 07:20 Malaria parasites Not Reportable 10/25/16 07:20 Suleman Bodies Not Reportable 10/25/16 07:20 Hem Pathologist Commnt No 10/25/16 07:20 POC ABG pH 7.204 (7.35-7.45) L 10/24/16 13:28 POC ABG pCO2 39.4 (35-45) 10/24/16 13:28 POC ABG pO2 72 (80-105) L 10/24/16 13:28 POC ABG HCO3 15.6 10/24/16 13:28 POC ABG Total CO2 17 10/24/16 13:28 POC ABG O2 Sat 90 10/24/16 13:28 POC ABG Base Excess -12 10/24/16 13:28 FiO2 30 % 10/24/16 13:28 Sodium 141 mmol/L (137-145) 10/25/16 06:47 Potassium 4.0 mmol/L (3.6-5.0) 10/25/16 06:47 Chloride 105.8 mmol/L (98-107) 10/25/16 06:47 Carbon Dioxide 23 mmol/L (22-30) D 10/25/16 06:47 Anion Gap 16 mmol/L 10/25/16 06:47 BUN 30 mg/dL (7-17) H 10/25/16 06:47 Creatinine 0.9 mg/dL (0.7-1.2) 10/25/16 06:47 Estimated GFR > 60 ml/min 10/25/16 06:47 BUN/Creatinine Ratio 33.33 % 10/25/16 06:47 Glucose 126 mg/dL (65-100) H 10/25/16 06:47 POC Glucose 123 (70-105) H 10/24/16 21:59 Lactic Acid 0.9 mmol/L (0.7-2.0) 10/24/16 10:16 Calcium 8.4 mg/dL (8.4-10.2) 10/25/16 06:47 Phosphorus 2.8 mg/dL (2.5-4.5) 10/24/16 15:46 Magnesium 1.7 mg/dL (1.7-2.3) 10/24/16 15:46 Total Bilirubin 0.2 mg/dL (0.1-1.2) 10/25/16 06:47 AST 17 units/L (5-40) 10/25/16 06:47 ALT 10 units/L (7-56) 10/25/16 06:47 Alkaline Phosphatase 89 units/L (35-129) 10/25/16 06:47 Troponin T < 0.010 ng/mL (0.00-0.029) 10/24/16 06:40 C-Reactive Protein 6.60 mg/dL (0.00-1.30) H 10/24/16 15:46 Total Protein 7.8 g/dL (6.3-8.2) 10/25/16 06:47 Albumin 3.1 g/dL (3.9-5) L 10/25/16 06:47 Albumin/Globulin Ratio 0.7 % 10/25/16 06:47
[2016-10-25 11:48] LABS: ISTAT Base Excess -1; ISTAT HCO3 23.5; ISTAT PCO2 37.7 (35-45); ISTAT PH 7.402 (7.35-7.45); ISTAT PO2 61 (80-105); ISTAT SO2 91; ISTAT TCO2 25
--- NOTE | 2016-10-25 11:54 | Progress Note ---
Assessment and Plan - Patient Problems (1) Acute respiratory failure with hypoxia Diagnosis Date: 10/24/16 Current Visit: Yes Status: Acute Plan to address problem: - continue to wean oxygen for sats > 94% - continue bronchodilators and pulmonary toilet - prn BIPA (2) COPD exacerbation Diagnosis Date: 10/24/16 Current Visit: Yes Status: Acute Plan to address problem: - taper stress steroids - continue other care as above (3) Dysphagia as late effect of stroke Diagnosis Date: 10/24/16 Current Visit: Yes Status: Acute Plan to address problem: - continue to feed via PEG - continue aspiration precautions all the same (4) Multiple sclerosis Diagnosis Date: 10/24/16 Current Visit: Yes Status: Acute Plan to address problem: - will now begin taper of stress dose steroids - continue other chronic disease meds (5) Pneumonia involving left lung Diagnosis Date: 10/24/16 Current Visit: Yes Status: Acute Qualifiers: Pneumonia type: due to unspecified organism Lung location: unspecified part of lung Qualified Code(s): J18.9 - Pneumonia, unspecified organism Plan to address problem: - await sputum C&S - on empiric treatment (6) Discharge planning issues Current Visit: Yes Status: Acute Plan to address problem: - transition to medical floor Subjective Date of service: 10/25/16 Principal diagnosis: Acute Hypoxemic Resp Failure; Sepsis Syndrome Interval history: Seen and examined at bedside; 24 hour events reviewed; nursing and respiratory care staff consulted; no adverse overnight events reported to me; feels better; remains on supplemental oxygen but room to wean; off vasopressors; no N/V/F/C; daughter in room Objective Vital Signs - 12hr 10/25/16 10/25/16 10/25/16 00:00 00:28 01:00 Temperature 97.4 F L Pulse Rate 73 79 81 Pulse Rate [ Anterior Bilateral Throughout] Pulse Rate [ 67 From Monitor] Respiratory 21 20 19 Rate Respiratory Rate [Anterior Bilateral Throughout] Blood Pressure 121/77 124/77 105/64 O2 Sat by Pulse 98 99 98 Oximetry 10/25/16 10/25/16 10/25/16 02:00 03:00 03:20 Temperature Pulse Rate 65 66 64 Pulse Rate [ Anterior Bilateral Throughout] Pulse Rate [ From Monitor] Respiratory 20 17 17 Rate Respiratory Rate [Anterior Bilateral Throughout] Blood Pressure 118/70 112/69 126/81 O2 Sat by Pulse 98 98 99 Oximetry 10/25/16 10/25/16 10/25/16 04:00 04:48 04:54 Temperature 97.5 F L Pulse Rate 59 L 60 57 L Pulse Rate [ Anterior Bilateral Throughout] Pulse Rate [ 65 From Monitor] Respiratory 20 15 20 Rate Respiratory Rate [Anterior Bilateral Throughout] Blood Pressure 108/66 120/71 120/71 O2 Sat by Pulse 98 98 99 Oximetry 10/25/16 10/25/16 10/25/16 04:56 05:00 05:25 Temperature Pulse Rate 60 57 L 60 Pulse Rate [ Anterior Bilateral Throughout] Pulse Rate [ From Monitor] Respiratory 20 20 20 Rate Respiratory Rate [Anterior Bilateral Throughout] Blood Pressure 120/71 124/71 120/73 O2 Sat by Pulse 98 98 98 Oximetry 10/25/16 10/25/16 10/25/16 05:52 05:54 06:00 Temperature Pulse Rate 58 L 60 59 L Pulse Rate [ Anterior Bilateral Throughout] Pulse Rate [ From Monitor] Respiratory 20 20 19 Rate Respiratory Rate [Anterior Bilateral Throughout] Blood Pressure 118/74 118/74 127/72 O2 Sat by Pulse 98 98 99 Oximetry 10/25/16 10/25/16 10/25/16 06:02 07:00 08:00 Temperature 97.8 F Pulse Rate 56 L 57 L 64 Pulse Rate [ Anterior Bilateral Throughout] Pulse Rate [ From Monitor] Respiratory 20 25 H 14 Rate Respiratory Rate [Anterior Bilateral Throughout] Blood Pressure 127/72 146/78 147/72 O2 Sat by Pulse 99 99 98 Oximetry 10/25/16 10/25/16 10/25/16 09:00 09:36 09:37 Temperature Pulse Rate 80 Pulse Rate [ 68 Anterior Bilateral Throughout] Pulse Rate [ From Monitor] Respiratory 15 Rate Respiratory 12 Rate [Anterior Bilateral Throughout] Blood Pressure 119/67 O2 Sat by Pulse 95 97 Oximetry 10/25/16 10/25/16 09:45 10:00 Temperature Pulse Rate 88 Pulse Rate [ Anterior Bilateral Throughout] Pulse Rate [ From Monitor] Respiratory 18 Rate Respiratory Rate [Anterior Bilateral Throughout] Blood Pressure 130/70 O2 Sat by Pulse 95 95 Oximetry Constitutional: no acute distress Eyes: non-icteric ENT: oropharynx moist Neck: supple, no lymphadenopathy Effort: mildly labored Ascultation: Bilateral: diminished breath sounds, rales (posterior bases) Cardiovascular: regular rate and rhythm Gastrointestinal: normoactive bowel sounds, soft, non-tender, non-distended Integumentary: normal Extremities: no cyanosis, no edema, pulses normal, no ischemia or petechiae Neurologic: normal mental status, non-focal exam, pupils equal and round, motor strength normal and Psychiatric: mood appropriate, affect normal CBC and BMP: 10/26/16 04:50 10/26/16 04:50 ABG, PT/INR, D-dimer: ABG POC ABG pH 7.402 (7.35-7.45) 10/25/16 09:37 POC ABG pCO2 37.7 (35-45) 10/25/16 09:37 POC ABG pO2 61 (80-105) L 10/25/16 09:37 POC ABG HCO3 23.5 10/25/16 09:37 POC ABG Total CO2 25 10/25/16 09:37 POC ABG O2 Sat 91 10/25/16 09:37 Abnormal lab findings: Abnormal Labs 10/24/16 10/24/16 10/24/16 13:28 15:46 21:59 WBC RBC RDW Lymph % (Auto) Seg Neutrophils % Seg Neuts % (Manual) Lymphocytes % (Manual) Seg Neutrophils # Seg Neutrophils # Man Lymphocytes # (Manual) POC ABG pH 7.204 L POC ABG pO2 72 L BUN Glucose POC Glucose 123 H C-Reactive Protein 6.60 H Albumin 10/24/16 10/25/16 10/25/16 Unknown 06:47 07:20 WBC 13.8 H 21.8 H RBC 3.58 L RDW 16.5 H 16.1 H Lymph % (Auto) 13.3 L Seg Neutrophils % 82.2 H Seg Neuts % (Manual) 77.0 H Lymphocytes % (Manual) 3.0 L Seg Neutrophils # 11.4 H Seg Neutrophils # Man 16.8 H Lymphocytes # (Manual) 0.7 L POC ABG pH POC ABG pO2 BUN 30 H Glucose 126 H POC Glucose C-Reactive Protein Albumin 3.1 L 10/25/16 09:37 WBC RBC RDW Lymph % (Auto) Seg Neutrophils % Seg Neuts % (Manual) Lymphocytes % (Manual) Seg Neutrophils # Seg Neutrophils # Man Lymphocytes # (Manual) POC ABG pH POC ABG pO2 61 L BUN Glucose POC Glucose C-Reactive Protein Albumin Chest x-ray: image reviewed
--- NOTE | 2016-10-25 13:04 | Admit Criteria Form ---
Admission Criteria Documentation: COPD Clinical Indications for Admission to Inpatient Care (Place 'X' for any and all applicable criteria): Admission is indicated for ANY ONE of the following (1)(2)(3): [ ]I. Acute exacerbation by high-risk comorbidity (e.g., pneumonia, dysrhythmia, heart failure, pleural effusion, pneumothorax) or severe underlying COPD (e.g., steroid dependent) [X ]II. Inpatient admission required rather than observation care (see Chronic Obstructive Pulmonary Disease: Observation Care) because of ANY ONE of the following: [ X]a) New or pre-existing signs or symptoms of COPD (eg, dyspnea or Tachypnea at rest or with minimal activity) that persist despite outpatient and observation care treatment [ ]b) New-onset hypoxemia (room air SaO2 less than 90%, PO2 less than 60 mm Hg (8.0 kPa)) that persists despite outpatient and observation care treatment [ ]c) Worsening of pre-existing hypoxemia (eg, new or increased requirement for supplemental oxygen to maintain oxygenation at baseline level) that persists despite outpatient and observation care treatment, with oxygen treatment needs performable only in acute inpatient setting [ ]d) Hypercarbia (PCO2 greater than 40 mm Hg (5.3 kPa))-induced respiratory acidosis (pH less than 7.35) that persists despite outpatient and observation care treatment [ ]e) Supplemental oxygen or respiratory treatments for over 24 hours that are performable only in acute inpatient setting [ ]f) Chest tube placement with active evacuation (e.g., suction, drainage) (5) [ ]g) Other condition, treatment or monitoring requiring inpatient admission [ ]III. Planned invasive surgical or diagnostic procedures requiring acute- care hospitalization [X ]IV. Acute respiratory failure (e.g., uncompensated hypercarbia, severe hypoxemia) [ ]V. Severe comorbid condition (e.g., severe steroid myopathy, acute vertebral fracture) that has acutely worsened pulmonary function [ ]. Confusion state, lethargy, obtundation, stupor or coma Extended stay beyond goal length of stay may be needed for (31)(32): [ ]a ) Respiratory Failure. [ ]b) Severe or persisting hypoxemia or hypercarbia [ ]c) Severe or persistent dyspnea [ ]d) Comorbidities (e.g. chronic heart failure, atrial fibrillation with rapid response, pneumonia) [ ]e) Malnutrition The original [facility] content created by [facility] has been revised. The portions of the content which have been revised are identified through the use of italic text or in bold, and [facility] has neither reviewed nor approved the modified material. All other unmodified content is copyright [facility]. Please see references footnoted in the original [facility] edition 2016 Admission Criteria Met: Yes
[2016-10-25] MEDS: NORCO 5/325 PO PRN (14:28)
[2016-10-25] MEDS: PULMICORT IH SCH (20:15)
[2016-10-26] MEDS: DUONEB 0.5 MG-3 MG/3 ML SOLN IH SCH ×4 (02:27→19:32)
[2016-10-26 05:09] LABS: Basophils % (Auto) 0.1 % (0.0-1.8); Hematocrit 33.1 % (30.3-42.9); Hemoglobin 10.6 gm/dl (10.1-14.3); Mean Corpuscular HGB Conc 32 % (30-34); Mean Corpuscular Hemoglobin 29 pg (28-32); Mean Corpuscular Volume 92 fl (79-97); Platelet Count 207 K/mm3 (140-440); Red Blood Count 3.61 M/mm3 (3.65-5.03); Red Cell Distribution Width 15.7 % (13.2-15.2); White Blood Count 18.7 K/mm3 (4.5-11.0)
[2016-10-26 05:47] LABS: Alanine Aminotransferase 8 units/L (7-56); Albumin 3.2 g/dL (3.9-5); Albumin/Globulin Ratio 0.7 %; Alkaline Phosphatase 98 units/L (35-129); BUN/Creatinine Ratio 28.88; Bilirubin,Total 0.2 mg/dL (0.1-1.2); Blood Urea Nitrogen 26 mg/dL (7-17); Calcium 8.8 mg/dL (8.4-10.2); Carbon Dioxide 26 mmol/L (22-30); Chloride 104.7 mmol/L (98-107); Glucose 111 mg/dL (65-100); Potassium 3.7 mmol/L (3.6-5.0); Sodium 144 mmol/L (137-145); Total Protein 7.8 g/dL (6.3-8.2)
[2016-10-26 05:49] LABS: Anion Gap 17 mmol/L
[2016-10-26] MEDS: PULMICORT IH SCH ×2 (07:21→19:32)
[2016-10-26] MEDS: LOVENOX SUB-Q SCH (09:39)
[2016-10-26] MEDS: ZITHROMAX 500 MG in NACL 0.9% 250ML 250 ML IV SCH (09:39)
[2016-10-26] MEDS: ROCEPHIN/NS 1 GM/50 ML 50 ML IV SCH (09:39)
[2016-10-26] MEDS: HABITROL TD SCH (09:40)
[2016-10-26] MEDS: PEPCID PO SCH ×2 (09:40→22:22)
[2016-10-26] MEDS: BABY ASPIRIN FEEDTUBE SCH (09:40)
--- NOTE | 2016-10-26 12:58 | Progress Note ---
Subjective Date of service: 10/26/16 Principal diagnosis: Acute Hypoxemic Respiratory Failure Interval history: Seen and examined at bedside; 24 hour events reviewed; nursing and respiratory care staff consulted; no adverse overnight events reported to me; Objective Vital Signs - 12hr 10/26/16 10/26/16 10/26/16 01:00 02:00 02:32 Temperature Pulse Rate 65 75 Pulse Rate [ 96 H Anterior Bilateral Throughout] Respiratory 13 13 Rate Respiratory 12 Rate [Anterior Bilateral Throughout] Blood Pressure 126/81 135/75 O2 Sat by Pulse 94 97 Oximetry 10/26/16 10/26/16 10/26/16 02:34 02:43 03:00 Temperature Pulse Rate 20 L 76 Pulse Rate [ 87 Anterior Bilateral Throughout] Respiratory 20 15 Rate Respiratory 20 Rate [Anterior Bilateral Throughout] Blood Pressure 135/75 135/75 O2 Sat by Pulse 98 95 Oximetry 10/26/16 10/26/16 10/26/16 03:46 03:48 03:50 Temperature 97.7 F Pulse Rate 70 69 Pulse Rate [ Anterior Bilateral Throughout] Respiratory 15 17 Rate Respiratory Rate [Anterior Bilateral Throughout] Blood Pressure 135/75 135/75 O2 Sat by Pulse 96 97 Oximetry 10/26/16 10/26/16 10/26/16 04:00 04:10 04:23 Temperature Pulse Rate 89 89 68 Pulse Rate [ Anterior Bilateral Throughout] Respiratory 15 18 16 Rate Respiratory Rate [Anterior Bilateral Throughout] Blood Pressure 138/80 138/80 O2 Sat by Pulse 97 96 96 Oximetry 10/26/16 10/26/16 10/26/16 04:50 05:00 05:06 Temperature Pulse Rate 89 76 68 Pulse Rate [ Anterior Bilateral Throughout] Respiratory 15 20 15 Rate Respiratory Rate [Anterior Bilateral Throughout] Blood Pressure 138/80 138/80 O2 Sat by Pulse 99 99 98 Oximetry 10/26/16 10/26/16 10/26/16 06:00 06:56 07:00 Temperature Pulse Rate 92 H 68 66 Pulse Rate [ Anterior Bilateral Throughout] Respiratory 13 17 17 Rate Respiratory Rate [Anterior Bilateral Throughout] Blood Pressure 115/78 115/78 115/78 O2 Sat by Pulse 100 98 97 Oximetry 10/26/16 10/26/16 10/26/16 07:18 07:19 07:45 Temperature Pulse Rate Pulse Rate [ 68 78 Anterior Bilateral Throughout] Respiratory Rate Respiratory 16 16 Rate [Anterior Bilateral Throughout] Blood Pressure O2 Sat by Pulse 97 Oximetry 10/26/16 10/26/16 10/26/16 08:00 08:30 09:00 Temperature 97.6 F Pulse Rate 85 80 Pulse Rate [ Anterior Bilateral Throughout] Respiratory 13 12 Rate Respiratory Rate [Anterior Bilateral Throughout] Blood Pressure 118/88 118/88 118/88 O2 Sat by Pulse 95 96 97 Oximetry 10/26/16 10/26/16 10:00 12:00 Temperature 98.2 F Pulse Rate 74 Pulse Rate [ Anterior Bilateral Throughout] Respiratory 12 Rate Respiratory Rate [Anterior Bilateral Throughout] Blood Pressure 113/71 O2 Sat by Pulse 96 Oximetry CBC and BMP: 10/26/16 04:50 10/26/16 04:50 ABG, PT/INR, D-dimer: ABG POC ABG pH 7.402 (7.35-7.45) 10/25/16 09:37 POC ABG pCO2 37.7 (35-45) 10/25/16 09:37 POC ABG pO2 61 (80-105) L 10/25/16 09:37 POC ABG HCO3 23.5 10/25/16 09:37 POC ABG Total CO2 25 10/25/16 09:37 POC ABG O2 Sat 91 10/25/16 09:37 Abnormal lab findings: Abnormal Labs 10/24/16 10/24/16 10/24/16 13:28 15:46 21:59 WBC RBC RDW Lymph % (Auto) Seg Neutrophils % Seg Neuts % (Manual) Lymphocytes % (Manual) Seg Neutrophils # Seg Neutrophils # Man Lymphocytes # (Manual) POC ABG pH 7.204 L POC ABG pO2 72 L BUN Glucose POC Glucose 123 H C-Reactive Protein 6.60 H Albumin 10/24/16 10/25/16 10/25/16 Unknown 06:47 07:20 WBC 13.8 H 21.8 H RBC 3.58 L RDW 16.5 H 16.1 H Lymph % (Auto) 13.3 L Seg Neutrophils % 82.2 H Seg Neuts % (Manual) 77.0 H Lymphocytes % (Manual) 3.0 L Seg Neutrophils # 11.4 H Seg Neutrophils # Man 16.8 H Lymphocytes # (Manual) 0.7 L POC ABG pH POC ABG pO2 BUN 30 H Glucose 126 H POC Glucose C-Reactive Protein Albumin 3.1 L 0110/26/16 10/26/16 09:37 04:50 04:50 WBC 18.7 H RBC 3.61 L RDW 15.7 H Lymph % (Auto) 8.2 L Seg Neutrophils % 88.8 H Seg Neuts % (Manual) Lymphocytes % (Manual) Seg Neutrophils # 16.6 H Seg Neutrophils # Man Lymphocytes # (Manual) POC ABG pH POC ABG pO2 61 L BUN 26 H Glucose 111 H POC Glucose C-Reactive Protein Albumin 3.2 L
--- NOTE | 2016-10-26 13:29 | Progress Note ---
Assessment and Plan - Patient Problems (1) Pneumonia involving left lung Onset Date: 10/24/16 Status: Acute Qualifiers: Pneumonia type: P Aspiration pneumonia type: A Lung location: L Plan to address problem: - await sputum C&S - on empiric treatment (2) COPD exacerbation Onset Date: 10/24/16 Status: Acute Plan to address problem: - taper stress steroids - continue other care as above (3) Acute respiratory failure with hypoxia Onset Date: 10/24/16 Status: Acute Plan to address problem: - continue to wean oxygen for sats > 94% - continue bronchodilators and pulmonary toilet - prn BIPAP (4) Dysphagia as late effect of stroke Onset Date: 10/24/16 Status: Acute Plan to address problem: - continue to feed via PEG - continue aspiration precautions all the same (5) Multiple sclerosis Onset Date: 10/24/16 Status: Acute Plan to address problem: - continue taper of stress dose steroids - continue other chronic disease meds Subjective Date of service: 10/26/16 Principal diagnosis: Acute Hypoxemic Resp Failure; Sepsis Syndrome Interval history: Seen and examined at bedside; 24 hour events reviewed; nursing and respiratory care staff consulted; "today is my birthday"; no N/V/F/C; no adverse overnight events reported to me Objective Vital Signs - 12hr 10/26/16 10/26/16 10/26/16 02:00 02:32 02:34 Temperature Pulse Rate 75 20 L Pulse Rate [ 96 H Anterior Bilateral Throughout] Respiratory 13 20 Rate Respiratory 12 Rate [Anterior Bilateral Throughout] Blood Pressure 135/75 135/75 O2 Sat by Pulse 97 98 Oximetry 10/26/16 10/26/16 10/26/16 02:43 03:00 03:46 Temperature 97.7 F Pulse Rate 76 Pulse Rate [ 87 Anterior Bilateral Throughout] Respiratory 15 Rate Respiratory 20 Rate [Anterior Bilateral Throughout] Blood Pressure 135/75 O2 Sat by Pulse 95 Oximetry 10/26/16 10/26/16 10/26/16 03:48 03:50 04:00 Temperature Pulse Rate 70 69 89 Pulse Rate [ Anterior Bilateral Throughout] Respiratory 15 17 15 Rate Respiratory Rate [Anterior Bilateral Throughout] Blood Pressure 135/75 135/75 138/80 O2 Sat by Pulse 96 97 97 Oximetry 10/26/16 10/26/16 10/26/16 04:10 04:23 04:50 Temperature Pulse Rate 89 68 89 Pulse Rate [ Anterior Bilateral Throughout] Respiratory 18 16 15 Rate Respiratory Rate [Anterior Bilateral Throughout] Blood Pressure 138/80 O2 Sat by Pulse 96 96 99 Oximetry 10/26/16 10/26/16 10/26/16 05:00 05:06 06:00 Temperature Pulse Rate 76 68 92 H Pulse Rate [ Anterior Bilateral Throughout] Respiratory 20 15 13 Rate Respiratory Rate [Anterior Bilateral Throughout] Blood Pressure 138/80 138/80 115/78 O2 Sat by Pulse 99 98 100 Oximetry 10/26/16 10/26/16 10/26/16 06:56 07:00 07:18 Temperature Pulse Rate 68 66 Pulse Rate [ Anterior Bilateral Throughout] Respiratory 17 17 Rate Respiratory Rate [Anterior Bilateral Throughout] Blood Pressure 115/78 115/78 O2 Sat by Pulse 98 97 97 Oximetry 10/26/16 10/26/16 10/26/16 07:19 07:45 08:00 Temperature 97.6 F Pulse Rate 85 Pulse Rate [ 68 78 Anterior Bilateral Throughout] Respiratory 13 Rate Respiratory 16 16 Rate [Anterior Bilateral Throughout] Blood Pressure 118/88 O2 Sat by Pulse 95 Oximetry 10/26/16 10/26/16 10/26/16 08:30 09:00 10:00 Temperature Pulse Rate 80 74 Pulse Rate [ Anterior Bilateral Throughout] Respiratory 12 12 Rate Respiratory Rate [Anterior Bilateral Throughout] Blood Pressure 118/88 118/88 113/71 O2 Sat by Pulse 96 97 96 Oximetry 10/26/16 12:00 Temperature 98.2 F Pulse Rate Pulse Rate [ Anterior Bilateral Throughout] Respiratory Rate Respiratory Rate [Anterior Bilateral Throughout] Blood Pressure O2 Sat by Pulse Oximetry Constitutional: no acute distress Eyes: non-icteric ENT: oropharynx moist Neck: supple, no lymphadenopathy Effort: mildly labored Ascultation: Bilateral: diminished breath sounds, rales (posterior bases) Cardiovascular: regular rate and rhythm Gastrointestinal: normoactive bowel sounds, soft, non-tender, non-distended Integumentary: normal Extremities: no cyanosis, no edema, pulses normal, no ischemia or petechiae Neurologic: normal mental status, non-focal exam, pupils equal and round, motor strength normal and Psychiatric: mood appropriate, affect normal CBC and BMP: 10/26/16 04:50 10/26/16 04:50 ABG, PT/INR, D-dimer: ABG POC ABG pH 7.402 (7.35-7.45) 10/25/16 09:37 POC ABG pCO2 37.7 (35-45) 10/25/16 09:37 POC ABG pO2 61 (80-105) L 10/25/16 09:37 POC ABG HCO3 23.5 10/25/16 09:37 POC ABG Total CO2 25 10/25/16 09:37 POC ABG O2 Sat 91 10/25/16 09:37 Abnormal lab findings: Abnormal Labs 10/24/16 10/24/16 10/24/16 13:28 15:46 21:59 WBC RBC RDW Lymph % (Auto) Seg Neutrophils % Seg Neuts % (Manual) Lymphocytes % (Manual) Seg Neutrophils # Seg Neutrophils # Man Lymphocytes # (Manual) POC ABG pH 7.204 L POC ABG pO2 72 L BUN Glucose POC Glucose 123 H C-Reactive Protein 6.60 H Albumin 10/24/16 10/25/16 10/25/16 Unknown 06:47 07:20 WBC 13.8 H 21.8 H RBC 3.58 L RDW 16.5 H 16.1 H Lymph % (Auto) 13.3 L Seg Neutrophils % 82.2 H Seg Neuts % (Manual) 77.0 H Lymphocytes % (Manual) 3.0 L Seg Neutrophils # 11.4 H Seg Neutrophils # Man 16.8 H Lymphocytes # (Manual) 0.7 L POC ABG pH POC ABG pO2 BUN 30 H Glucose 126 H POC Glucose C-Reactive Protein Albumin 3.1 L 10/25/16 10/26/16 10/26/16 09:37 04:50 04:50 WBC 18.7 H RBC 3.61 L RDW 15.7 H Lymph % (Auto) 8.2 L Seg Neutrophils % 88.8 H Seg Neuts % (Manual) Lymphocytes % (Manual) Seg Neutrophils # 16.6 H Seg Neutrophils # Man Lymphocytes # (Manual) POC ABG pH POC ABG pO2 61 L BUN 26 H Glucose 111 H POC Glucose C-Reactive Protein Albumin 3.2 L
[2016-10-26] MEDS ORDERED: NACL ONE (15:34)
--- NOTE | 2016-10-26 15:41 | Progress Note ---
Assessment and Plan Assessment and plan: 1. Acute on chronic respiratory failure due to copd exacerbation and possible Lt lower lobe PNA and sepsis POA- improving; transfer to medical floor; cont nebulization and treatments and antibiotics ; cotn supplemental oxygen and nocturnal BIPAP; f/u pulmonary; monitor WBC 2. Leukocytosis-increasing today; likely due to IV steroids which were stopped yesterday 3. DVT prophylaxis- lovenox History Interval history: f/u respiratory failure, copd exacerbation Patient seen at the bedside; sob better; used BIPAP last night Hospitalist Physical - Constitutional Vitals: Temp Pulse Resp BP Pulse Ox 98.2 F 72 12 113/71 96 10/26/16 12:00 10/26/16 14:06 10/26/16 14:06 10/26/16 10:00 10/26/16 10:00 General appearance: Present: no acute distress, well-nourished - EENT Eyes: Present: PERRL, EOM intact. Absent: scleral icterus, conjunctival injection ENT: hearing intact, clear oral mucosa, no oropharyngeal erythema, no poor dentition - Neck Neck: Present: supple, normal ROM. Absent: enlarged thyroid, masses or JVD - Respiratory Respiratory effort: normal Respiratory: bilateral: diminished, negative: rales, rhonchi, wheezing - Cardiovascular Rhythm: regular Heart Sounds: Present: S1 & S2. Absent: gallop - Extremities Extremities: no ischemia, pulses intact, pulses symmetrical, No edema Peripheral Pulses: within normal limits - Abdominal General gastrointestinal: soft, non-tender, non-distended - Integumentary Integumentary: Present: clear - Psychiatric Psychiatric: appropriate mood/affect, intact judgment & insight, cooperative - Neurologic Neurologic: CNII-XII intact, moves all extremities Results - Labs CBC & Chem 7: 10/26/16 04:50 10/26/16 04:50 Labs: Laboratory Last Values WBC 18.7 K/mm3 (4.5-11.0) H 10/26/16 04:50 RBC 3.61 M/mm3 (3.65-5.03) L 10/26/16 04:50 Hgb 10.6 gm/dl (10.1-14.3) 10/26/16 04:50 Hct 33.1 % (30.3-42.9) 10/26/16 04:50 MCV 92 fl (79-97) 10/26/16 04:50 MCH 29 pg (28-32) 10/26/16 04:50 MCHC 32 % (30-34) 10/26/16 04:50 RDW 15.7 % (13.2-15.2) H 10/26/16 04:50 Plt Count 207 K/mm3 (140-440) 10/26/16 04:50 Lymph % (Auto) 8.2 % (13.4-35.0) L 10/26/16 04:50 [place] % (Auto) 2.9 % (0.0-7.3) 10/26/16 04:50 Eos % (Auto) 0.0 % (0.0-4.3) 10/26/16 04:50 Baso % (Auto) 0.1 % (0.0-1.8) 10/26/16 04:50 Lymph # 1.5 K/mm3 (1.2-5.4) 10/26/16 04:50 [place] # 0.5 K/mm3 (0.0-0.8) 10/26/16 04:50 Eos # 0.0 K/mm3 (0.0-0.4) 10/26/16 04:50 Baso # 0.0 K/mm3 (0.0-0.1) 10/26/16 04:50 Add Manual Diff Complete 10/25/16 07:20 Total Counted 100 10/25/16 07:20 Seg Neutrophils % 88.8 % (40.0-70.0) H 10/26/16 04:50 Seg Neuts % (Manual) 77.0 % (40.0-70.0) H 10/25/16 07:20 Band Neutrophils % 18.0 % 10/25/16 07:20 Lymphocytes % (Manual) 3.0 % (13.4-35.0) L 10/25/16 07:20 Reactive Lymphs % (Man) 0 % 10/25/16 07:20 Monocytes % (Manual) 2.0 % (0.0-7.3) 10/25/16 07:20 Eosinophils % (Manual) 0 % (0.0-4.3) 10/25/16 07:20 Basophils % (Manual) 0 % (0.0-1.8) 10/25/16 07:20 Metamyelocytes % 0 % 10/25/16 07:20 Myelocytes % 0 % 10/25/16 07:20 Promyelocytes % 0 % 10/25/16 07:20 Blast Cells % 0 % 10/25/16 07:20 Nucleated RBC % Not Reportable 10/25/16 07:20 Seg Neutrophils # 16.6 K/mm3 (1.8-7.7) H 10/26/16 04:50 Seg Neutrophils # Man 16.8 K/mm3 (1.8-7.7) H 10/25/16 07:20 Band Neutrophils # 3.9 K/mm3 10/25/16 07:20 Lymphocytes # (Manual) 0.7 K/mm3 (1.2-5.4) L 10/25/16 07:20 Abs React Lymphs (Man) 0.0 K/mm3 10/25/16 07:20 Monocytes # (Manual) 0.4 K/mm3 (0.0-0.8) 10/25/16 07:20 Eosinophils # (Manual) 0.0 K/mm3 (0.0-0.4) 10/25/16 07:20 Basophils # (Manual) 0.0 K/mm3 (0.0-0.1) 10/25/16 07:20 Metamyelocytes # 0.0 K/mm3 10/25/16 07:20 Myelocytes # 0.0 K/mm3 10/25/16 07:20 Promyelocytes # 0.0 K/mm3 10/25/16 07:20 Blast Cells # 0.0 K/mm3 10/25/16 07:20 WBC Morphology Not Reportable 10/25/16 07:20 Hypersegmented Neuts Not Reportable 10/25/16 07:20 Hyposegmented Neuts Not Reportable 10/25/16 07:20 Hypogranular Neuts Not Reportable 10/25/16 07:20 Smudge Cells Not Reportable 10/25/16 07:20 Toxic Granulation Not Reportable 10/25/16 07:20 Toxic Vacuolation Not Reportable 10/25/16 07:20 Dohle Bodies Not Reportable 10/25/16 07:20 Pelger-Huet Anomaly Not Reportable 10/25/16 07:20 Martha Rods Not Reportable 10/25/16 07:20 Platelet Estimate Appears normal 10/25/16 07:20 Clumped Platelets Not Reportable 10/25/16 07:20 Plt Clumps, EDTA Not Reportable 10/25/16 07:20 Large Platelets Not Reportable 10/25/16 07:20 Giant Platelets Not Reportable 10/25/16 07:20 Platelet Satelliting Not Reportable 10/25/16 07:20 Plt Morphology Comment Not Reportable 10/25/16 07:20 RBC Morphology Normal 10/25/16 07:20 Dimorphic RBCs Not Reportable 10/25/16 07:20 Polychromasia Not Reportable 10/25/16 07:20 Hypochromasia Not Reportable 10/25/16 07:20 Poikilocytosis Not Reportable 10/25/16 07:20 Anisocytosis Not Reportable 10/25/16 07:20 Microcytosis Not Reportable 10/25/16 07:20 Macrocytosis Not Reportable 10/25/16 07:20 Spherocytes Not Reportable 10/25/16 07:20 Pappenheimer Bodies Not Reportable 10/25/16 07:20 Sickle Cells Not Reportable 10/25/16 07:20 Target Cells Not Reportable 10/25/16 07:20 Tear Drop Cells Not Reportable 10/25/16 07:20 Ovalocytes Not Reportable 10/25/16 07:20 Helmet Cells Not Reportable 10/25/16 07:20 [place] Bodies Not Reportable 10/25/16 07:20 [place] Rings Not Reportable 10/25/16 07:20 [place] Cells Not Reportable 10/25/16 07:20 Bite Cells Not Reportable 10/25/16 07:20 Crenated Cell Not Reportable 10/25/16 07:20 Elliptocytes Not Reportable 10/25/16 07:20 Acanthocytes (Spur) Not Reportable 10/25/16 07:20 Rouleaux Not Reportable 10/25/16 07:20 Hemoglobin C Crystals Not Reportable 10/25/16 07:20 Schistocytes Not Reportable 10/25/16 07:20 Malaria parasites Not Reportable 10/25/16 07:20 [place] Bodies Not Reportable 10/25/16 07:20 Hem Pathologist Commnt No 10/25/16 07:20 POC ABG pH 7.402 (7.35-7.45) 10/25/16 09:37 POC ABG pCO2 37.7 (35-45) 10/25/16 09:37 POC ABG pO2 61 (80-105) L 10/25/16 09:37 POC ABG HCO3 23.5 10/25/16 09:37 POC ABG Total CO2 25 10/25/16 09:37 POC ABG O2 Sat 91 10/25/16 09:37 POC ABG Base Excess -1 10/25/16 09:37 FiO2 28 % 10/25/16 09:37 Sodium 144 mmol/L (137-145) 10/26/16 04:50 Potassium 3.7 mmol/L (3.6-5.0) 10/26/16 04:50 Chloride 104.7 mmol/L (98-107) 10/26/16 04:50 Carbon Dioxide 26 mmol/L (22-30) 10/26/16 04:50 Anion Gap 17 mmol/L 10/26/16 04:50 BUN 26 mg/dL (7-17) H 10/26/16 04:50 Creatinine 0.9 mg/dL (0.7-1.2) 10/26/16 04:50 Estimated GFR > 60 ml/min 10/26/16 04:50 BUN/Creatinine Ratio 28.88 % 10/26/16 04:50 Glucose 111 mg/dL (65-100) H 10/26/16 04:50 POC Glucose 123 (70-105) H 10/24/16 21:59 Lactic Acid 0.9 mmol/L (0.7-2.0) 10/26/16 04:50 Calcium 8.8 mg/dL (8.4-10.2) 10/26/16 04:50 Phosphorus 2.8 mg/dL (2.5-4.5) 10/24/16 15:46 Magnesium 1.7 mg/dL (1.7-2.3) 10/24/16 15:46 Total Bilirubin 0.2 mg/dL (0.1-1.2) 10/26/16 04:50 AST 14 units/L (5-40) 10/26/16 04:50 ALT 8 units/L (7-56) 10/26/16 04:50 Alkaline Phosphatase 98 units/L (35-129) 10/26/16 04:50 Troponin T < 0.010 ng/mL (0.00-0.029) 10/24/16 06:40 C-Reactive Protein 6.60 mg/dL (0.00-1.30) H 10/24/16 15:46 Total Protein 7.8 g/dL (6.3-8.2) 10/26/16 04:50 Albumin 3.2 g/dL (3.9-5) L 10/26/16 04:50 Albumin/Globulin Ratio 0.7 % 10/26/16 04:50 Microbiology 10/24/16 07:42 Peripheral/Venous Blood Culture - Preliminary NO GROWTH AFTER 48 HOURS 10/24/16 07:42 Peripheral/Venous Blood Culture - Preliminary NO GROWTH AFTER 48 HOURS 10/24/16 20:40 Sputum - Expectorated Sputum Sputum Culture - Final - Imaging and Cardiology Chest x-ray: report reviewed (illdrfined left lower lobe infiltrate )
--- NOTE | 2016-10-26 16:42 | Cat Scan Report ---
CT scan of chest with IV contrast: History: Hilar enlargement. Findings: No endobronchial or mediastinal mass. Mediastinal lymph nodes appear to be at upper limit of normal. No pleural or pericardial effusion. Ill-defined airspace opacities left lower lobe periaortic region. No lung mass. Multiple bulla right and left lung with scarring right lung. Impression: Infiltrates left lower lobe periaortic region suggestive of pneumonitis. Emphysematous changes with scattered bulla bilaterally.
[2016-10-27] MEDS: DUONEB 0.5 MG-3 MG/3 ML SOLN IH SCH ×3 (02:20→14:04)
[2016-10-27 02:28] VITALS: BP 136/69
[2016-10-27] MEDS: PULMICORT IH SCH (07:30)
[2016-10-27] MEDS ORDERED: TRIPLE ANTIBIOTIC TP ONE (12:51)
--- NOTE | 2016-10-27 13:41 | Discharge Summary ---
Providers - Providers Date of Admission: 10/24/16 09:17 Date of discharge: 10/27/16 Attending physician: TISHA FAULKNER 10/24/16 16:54 Consult to Dietitian/Nutrition [CONS] Routine Physician Instructions: Reason For Exam: Reason for Consult: Write/Manage Tube Feeding Primary care physician: LEAD PR[employer] Hospitalization Reason for admission: acute on chronic respiratory failure; copd; pneumpnia Condition: Fair Pertinent studies: cta chest -emphysema; pneumonitis Hospital course: see summary note in paper chart (EMR was down) leukocytosis trending down due to steroid use; afebrile Disposition: DC/[place] HOME UNDER HOME HEALTH - Discharge Diagnoses (1) Acute respiratory failure with hypoxia Status: Acute (2) Bipolar disorder Status: Acute Qualifiers: Active/Remission status: A Current bipolar episode type: C Current episode severity: C Psychotic features: P Most recent bipolar episode type: M (3) COPD exacerbation Status: Acute (4) Dysphagia as late effect of stroke Status: Acute (5) Pneumonia involving left lung Status: Acute Qualifiers: Pneumonia type: P Aspiration pneumonia type: A Lung location: L Core Measure Documentation - Palliative Care Palliative Care/ Comfort Measures: Not Applicable - Core Measures Any of the following diagnoses?: none Exam - Constitutional Vitals: Temp Pulse Resp BP Pulse Ox 98.6 F 80 18 117/85 98 10/27/16 00:00 10/27/16 02:20 10/27/16 02:20 10/27/16 00:00 10/27/16 02:16 General appearance: Present: no acute distress, well-nourished - EENT Eyes: Present: PERRL, EOM intact. Absent: scleral icterus, conjunctival injection ENT: hearing intact, clear oral mucosa, no oropharyngeal erythema, no poor dentition - Neck Neck: Present: supple - Respiratory Respiratory effort: normal Respiratory: negative: diminished, rales, rhonchi, wheezing - Cardiovascular Rhythm: regular Heart Sounds: Present: S1 & S2. Absent: gallop - Extremities Extremities: no ischemia, pulses intact, pulses symmetrical - Abdominal General gastrointestinal: Present: soft, non-tender, non-distended, other (Peg) Female genitourinary: Present: deferred - Rectal Rectal Exam: deferred - Integumentary Integumentary: Present: clear - Musculoskeletal Musculoskeletal: strength equal bilaterally - Psychiatric Psychiatric: appropriate mood/affect, intact judgment & insight, cooperative - Neurologic Neurologic: CNII-XII intact, moves all extremities Plan Activity: advance as tolerated Diet: other (PEG ) Follow up with: PRIMARY CARE, [Primary Care Provider] - 3-5 Days Prescriptions: Levofloxacin [Levaquin TAB] 500 mg PO QDAY #5 tablet
== END 2016-10-27 15:20 | disposition home health service (06) | DRG 871 ==
LOC: ED 06:31 → CC1 09:17 → 3A 10-26 20:59
PROVIDERS: ADMIT Family Medicine; ATTEND Hospitalist
PROC: 02HV33Z Insertion of Infusion Device into Superior Vena Cava, Percutaneous Approach (ICD-10-PCS; principal; 2016-10-24)
PROC: B548ZZA Ultrasonography of Superior Vena Cava, Guidance (ICD-10-PCS; 2016-10-24)
PROC: 4A033R1 Measurement of Arterial Saturation, Peripheral, Percutaneous Approach (ICD-10-PCS; 2016-10-24)
PROC: 5A09357 Assistance with Respiratory Ventilation, Less than 24 Consecutive Hours, Continuous Positive Airway Pressure (ICD-10-PCS; 2016-10-24)
PROC: 4A033R1 Measurement of Arterial Saturation, Peripheral, Percutaneous Approach (ICD-10-PCS; 2016-10-25)
DX: A41.9 Sepsis, unspecified organism (principal); J96.21 Acute and chronic respiratory failure with hypoxia; J18.9 Pneumonia, unspecified organism; J44.1 Chronic obstructive pulmonary disease with (acute) exacerbation; E87.2 Acidosis; J44.0 Chronic obstructive pulmonary disease with (acute) lower respiratory infection; I69.354 Hemiplegia and hemiparesis following cerebral infarction affecting left non-dominant side; F31.9 Bipolar disorder, unspecified; M32.9 Systemic lupus erythematosus, unspecified; R13.10 Dysphagia, unspecified; F17.210 Nicotine dependence, cigarettes, uncomplicated; I69.391 Dysphagia following cerebral infarction; G35 Multiple sclerosis; I10 Essential (primary) hypertension; Z93.0 Tracheostomy status; Z93.1 Gastrostomy status; Z79.82 Long term (current) use of aspirin; Z88.8 Allergy status to other drugs, medicaments and biological substances
CPT/HCPCS: 36415; 36600; 71010; 71260; 80048; 80053; 82140; 82803; 82962; 83735; 84100; 84484; 85007; 85025; 86140; 87040; 87205; 90686; 93005; 93010; 94640; 94660; 94760; 96361; 96365; 96367; 96372; A6250; J0456; J0696; J1650; J1720; J7030; J7050; J7070; J7512; Q9967